=== PATIENT | female | born 1975 | race American Indian/Alaskan Native ===

== ENCOUNTER 2018-01-26 05:54 | Emergency (ER) | payer MEDICAID, OTHER ==
--- NOTE | 2018-01-26 06:02 | EDM.PDOC ---
<Kit Hooks - Last Filed: 01/26/18 09:31> ED HPI GENERAL MEDICAL PROBLEM - General Chief Complaint: Genitourinary Problem Stated Complaint: BLADDER INFECTION Time Seen by Provider: 01/26/18 06:02 Source of Information: Reports: Patient History Limitations: Reports: No Limitations - History of Present Illness INITIAL COMMENTS - FREE TEXT/NARRATIVE: This is Dr. Hooks taking over care of patient at [address] Horner. I have reviewed all history and lab results as well as physical exam patient. 42-year-old female presenting to emergency department with chief complaint of urinary urgency and right flank pain. Patient stated that she was here from [place] for a childbirth. States that she has been at the hospital since 10 PM last night when she began to have some urinary urgency "felt like I just had to pee", and when she did she felt some mild burning and noticed some red discoloration. Initially she thought that she had a urinary tract infection but since then has had some right sided flank pain. She denies any fever, chills, malaise, nausea, vomiting, diarrhea, or other symptoms of systemic infection. Patient does state that approximately 2 years ago she had a kidney stone which he passed on her own. No other episodes. 08 45- CT reveals a 4 mm stone in the right mid ureter without any hydronephrosis or hydroureter. There was also a 5 mm nonobstructing calculus lower pole calyx left kidney. No other significant findings on CT. Results discussed with patient. Pain currently controlled. Will consult urology but most likely able to discharge and passed on her own. 0915- talked with Dr. Walter, urology, he is aware patient. We will discharge her with tamsulosin 0.4 mg by mouth daily, [place] 5?3 25 mg by mouth every 6 hours #12, and Zofran 4 mg by mouth every 6 hours for any future nausea. Impression: Hematuria secondary to nephrolithiasis nonobstructing. As above gave pain medications, tamsulosin, and Zofran to patient. Instructed her to take medications as needed and to hydrate extensively. If she is continuing to have pain and does not pass the stone we did give her information on Dr. May to call for a clinic appointment for further evaluation. She should watch for any signs of infection including but not limited to fever, chills, malaise, increased pain, increased hematuria and follow-up immediately for possible infection. We also gave patient a toiletry hat and strainer to collect any stones that she passes. Patient was discharged in good condition with instruction to follow-up with her primary care physician and urology as needed. - Related Data Allergies Allergy/AdvReac Type Severity Reaction Status Date / Time Penicillins Allergy Cannot Verified 02/26/14 13:36 Remember Home Meds: Home Meds Cetirizine [ZyrTEC] 10 mg PO DAILY 02/26/14 [History] Fluticasone/Salmeterol [Advair 500-50] 2 puff INH BID 02/26/14 [History] Insulin Aspart [NovoLOG] 02/26/14 [History] Insulin Glarg,Human.Rec.Analog [LantUS] 5 unit SQ 02/26/14 [History] Ipratropium [Atrovent HFA Inh] 1 puff INH Q4HR PRN 02/26/14 [History] Ipratropium/Albuterol Sulfate [Duoneb 0.5 mg-3 mg/3 ml Soln] 3 ml INH PRN [History] Mometasone Furoate [Nasonex [place]] 1 spray FLORIDALMA BID 02/26/14 [History] Montelukast [Singulair] 10 mg PO DAILY 02/26/14 [History] metFORMIN [metFORMIN XR] 500 mg PO DAILY 02/26/14 [History] ED ROS GENERAL - Review of Systems Review Of Systems: See Below ED EXAM, GENERAL - Physical Exam Exam: See Below Course - Vital Signs Last Recorded V/S: Last Vital Signs Temp 96.8 F 01/26/18 10:05 Pulse 72 01/26/18 10:05 Resp 16 01/26/18 10:05 BP 104/71 01/26/18 10:05 Pulse Ox 96 01/26/18 10:05 - Orders/Labs/Meds Labs: Laboratory Tests 01/26/18 01/26/18 01/26/18 Range/Units 06:10 06:10 07:20 WBC 11.95 H (4.0-11.0) K/uL RBC 4.66 (4.30-5.90) M/uL Hgb 14.6 (12.0-16.0) g/dL Hct 41.2 (36.0-46.0) % MCV 88.4 (80.0-98.0) fL MCH 31.3 (27.0-32.0) pg MCHC 35.4 (31.0-37.0) g/dL RDW Std Deviation 41.1 (28.0-62.0) fl RDW Coeff of Corrina 13 (11.0-15.0) % Plt Count 293 (150-400) K/uL MPV 10.70 (7.40-12.00) fL Neut % (Auto) 58.7 (48.0-80.0) % Lymph % (Auto) 31.0 (16.0-40.0) % [place] % (Auto) 6.5 (0.0-15.0) % Eos % (Auto) 3.5 (0.0-7.0) % Baso % (Auto) 0.3 (0.0-1.5) % Neut # (Auto) 7.0 H (1.4-5.7) K/uL Lymph # (Auto) 3.7 H (0.6-2.4) K/uL [place] # (Auto) 0.8 (0.0-0.8) K/uL Eos # (Auto) 0.4 (0.0-0.7) K/uL Baso # (Auto) 0.0 (0.0-0.1) K/uL Nucleated RBC % 0.0 /100WBC Nucleated RBCs # 0 K/uL Sodium (136-145) mmol/L Potassium (3.5-5.1) mmol/L Chloride (98-107) mmol/L Carbon Dioxide (21.0-32.0) mmol/L BUN (7.0-18.0) mg/dL Creatinine (0.6-1.0) mg/dL Est Cr Clr Drug Dosing mL/min Estimated GFR (MDRD) ml/min Glucose (74-106) mg/dL Calcium (8.5-10.1) mg/dL Total Bilirubin (0.2-1.0) mg/dL AST (15-37) IU/L ALT (14-63) IU/L Alkaline Phosphatase (46-116) U/L Total Protein (6.4-8.2) g/dL Albumin (3.4-5.0) g/dL Globulin (2.0-3.5) g/dL Albumin/Globulin Ratio (1.3-2.8) Urine Color YELLOW Urine Appearance CLEAR Urine pH 6.0 (5.0-8.0) Ur Specific [place] >= 1.030 (1.001-1.035) Urine Protein 100 (NEGATIVE) mg/dL Urine Glucose (UA) >=1000 (NEGATIVE) mg/dL Urine Ketones NEGATIVE (NEGATIVE) mg/dL Urine Occult Blood LARGE H (NEGATIVE) Urine Nitrite NEGATIVE (NEGATIVE) Urine Bilirubin NEGATIVE (NEGATIVE) Urine Urobilinogen 0.2 (<2.0) EU/dL Ur Leukocyte Esterase NEGATIVE (NEGATIVE) Urine RBC 40-50 (0-2/HPF) Urine WBC 2-3 (0-5/HPF) Ur Epithelial Cells RARE (NONE-FEW) Urine Bacteria RARE (NEGATIVE) Urinalysis Comment Urine HCG, Qual NEGATIVE (NEGATIVE) 01/26/18 Range/Units 07:20 WBC (4.0-11.0) K/uL RBC (4.30-5.90) M/uL Hgb (12.0-16.0) g/dL Hct (36.0-46.0) % MCV (80.0-98.0) fL MCH (27.0-32.0) pg MCHC (31.0-37.0) g/dL RDW Std Deviation (28.0-62.0) fl RDW Coeff of Corrina (11.0-15.0) % Plt Count (150-400) K/uL MPV (7.40-12.00) fL Neut % (Auto) (48.0-80.0) % Lymph % (Auto) (16.0-40.0) % [place] % (Auto) (0.0-15.0) % Eos % (Auto) (0.0-7.0) % Baso % (Auto) (0.0-1.5) % Neut # (Auto) (1.4-5.7) K/uL Lymph # (Auto) (0.6-2.4) K/uL [place] # (Auto) (0.0-0.8) K/uL Eos # (Auto) (0.0-0.7) K/uL Baso # (Auto) (0.0-0.1) K/uL Nucleated RBC % /100WBC Nucleated RBCs # K/uL Sodium 138 (136-145) mmol/L Potassium 4.4 (3.5-5.1) mmol/L Chloride 103 (98-107) mmol/L Carbon Dioxide 25.5 (21.0-32.0) mmol/L BUN 16 (7.0-18.0) mg/dL Creatinine 1.1 H (0.6-1.0) mg/dL Est Cr Clr Drug Dosing 2.65 mL/min Estimated GFR (MDRD) 54.7 ml/min Glucose 330 H (74-106) mg/dL Calcium 9.5 (8.5-10.1) mg/dL Total Bilirubin 0.2 (0.2-1.0) mg/dL AST 31 (15-37) IU/L ALT 91 H (14-63) IU/L Alkaline Phosphatase 106 (46-116) U/L Total Protein 7.8 (6.4-8.2) g/dL Albumin 4.0 (3.4-5.0) g/dL Globulin 3.8 H (2.0-3.5) g/dL Albumin/Globulin Ratio 1.1 L (1.3-2.8) Urine Color Urine Appearance Urine pH (5.0-8.0) Ur Specific [place] (1.001-1.035) Urine Protein (NEGATIVE) mg/dL Urine Glucose (UA) (NEGATIVE) mg/dL Urine Ketones (NEGATIVE) mg/dL Urine Occult Blood (NEGATIVE) Urine Nitrite (NEGATIVE) Urine Bilirubin (NEGATIVE) Urine Urobilinogen (<2.0) EU/dL Ur Leukocyte Esterase (NEGATIVE) Urine RBC (0-2/HPF) Urine WBC (0-5/HPF) Ur Epithelial Cells (NONE-FEW) Urine Bacteria (NEGATIVE) Urinalysis Comment Urine HCG, Qual (NEGATIVE) Meds: Medications Discontinued Medications Generic Name Dose Route Start Last Admin Trade Name Freq PRN Reason Stop Dose Admin Sodium Chloride 1,000 mls @ 999 mls/hr 01/26/18 07:05 01/26/18 07:24 Normal Saline IV 01/26/18 08:05 999 mls/hr STAT ONE Administration Ketorolac Tromethamine 30 mg 01/26/18 07:05 01/26/18 07:28 Toradol IVPUSH 01/26/18 07:06 30 mg ONETIME ONE Administration Ketorolac Tromethamine 30 mg 01/26/18 09:30 01/26/18 09:32 Toradol IVPUSH 01/26/18 09:31 30 mg ONETIME ONE Administration Ondansetron HCl 8 mg 01/26/18 07:05 01/26/18 07:26 Zofran IVPUSH 01/26/18 07:06 8 mg ONETIME ONE Administration Departure - Departure Time of Disposition: 09:35 Disposition: Home, Self-Care 01 Condition: Good Clinical Impression: Nephrolithiasis - Discharge Information Instructions: Kidney Stones, [id number] Referrals: PCP,None [Primary Care Provider] - James May MD [Physician] - Forms: ED Department Discharge Additional Instructions: My general discharge The following information is given to patients seen in the emergency department who are being discharged to home. This information is to outline your options for follow-up care. We provide all patients seen in our emergency department with a follow-up referral. The need for follow-up, as well as the timing and circumstances, are variable depending upon the specifics of your emergency department visit. If you don't have a primary care physician on staff, we will provide you with a referral. We always advise you to contact your personal physician following an emergency department visit to inform them of the circumstance of the visit and for follow-up with them and/or the need for any referrals to a consulting specialist. The emergency department will also refer you to a specialist when appropriate. This referral assures that you have the opportunity for follow-up care with a specialist. All of these measure are taken in an effort to provide you with optimal care, which includes your follow-up. Under all circumstances we always encourage you to contact your private physician who remains a resource for coordinating your care. When calling for follow-up care, please make the office aware that this follow-up is from your recent emergency room visit. If for any reason you are refused follow-up, please contact the [facility] at and asked to speak to the emergency department charge nurse. [facility] [address] [place] [id number] [facility] - Urology [address] [place] [address] <Benedict Simon - Last Filed: 01/29/18 10:42> ED HPI GENERAL MEDICAL PROBLEM - General Source of Information: Reports: Patient - History of Present Illness INITIAL COMMENTS - FREE TEXT/NARRATIVE: Addendum 01/29/[address] Walter and as well as Althea at 1040 this morning as her urine culture came back positive for Escherichia coli greater than 100, 000 colony-forming units Dr. Luz advised that she come in to his office like will likely will be admitting and removing her stone in the morning as she is still having symptoms of the stone has not passed this is agreed to come in from [place] and should be in his office by 1 PM HISTORY AND PHYSICAL: History of present illness: [Patient with frequency and dysuria for 1 days increasing in severity no fever nausea vomiting chills sweats] she has groin pain radiating to the right flank she rates 6 out of 10 Review of systems: As per history of present illness and below otherwise all systems reviewed and negative. Past medical history: As per history of present illness and as reviewed below otherwise noncontributory. Surgical history: As per history of present illness and as reviewed below otherwise noncontributory. Social history: No reported history of drug or alcohol abuse. Family history: As per history of present illness and as reviewed below otherwise noncontributory. Physical exam: HEENT: Atraumatic, normocephalic, pupils reactive, negative for conjunctival pallor or scleral icterus, mucous membranes moist, throat clear, neck supple, nontender, trachea midline. Lungs: Clear to auscultation, breath sounds equal bilaterally, chest nontender. Heart: S1S2, regular, negative for clicks, rubs, or JVD. Abdomen: Soft, nondistended, nontender. Negative for masses or hepatosplenomegaly. Negative for costovertebral tenderness. Pelvis: Stable nontender. Genitourinary: Deferred. Rectal: Deferred. Extremities: Atraumatic, negative for cords or calf pain. Neurovascular unremarkable. Neuro: Awake, alert, oriented. Cranial nerves II through XII unremarkable. Cerebellum unremarkable. Motor and sensory unremarkable throughout. Exam nonfocal. Diagnostics: [UA hCG urine culture] Therapeutics: [1 L normal saline bolus Zofran 8 mg IV ] Toradol 30 mg IV Impression: hematuria Patient signed out at shift change to Dr. Hooks to follow lab and redirect imaging was just ordered and pending Definitive disposition and diagnosis as appropriate pending reevaluation and review of above. bladder/urinary Pain Score (Numeric/FACES): 8 Social & Family History - Living Situation & Occupation Living situation: Reports: Single Occupation: Employed ED ROS GENERAL - Review of Systems Review Of Systems: ROS reveals no pertinent complaints other than HPI. ED EXAM, GENERAL - Physical Exam Exam: See Below Course - Vital Signs Last Recorded V/S: Last Vital Signs Temp 96.8 F 01/26/18 10:05 Pulse 72 01/26/18 10:05 Resp 16 01/26/18 10:05 BP 104/71 01/26/18 10:05 Pulse Ox 96 01/26/18 10:05 - Orders/Labs/Meds Labs: Laboratory Tests 01/26/18 01/26/18 01/26/18 Range/Units 06:10 06:10 07:20 WBC 11.95 H (4.0-11.0) K/uL RBC 4.66 (4.30-5.90) M/uL Hgb 14.6 (12.0-16.0) g/dL Hct 41.2 (36.0-46.0) % MCV 88.4 (80.0-98.0) fL MCH 31.3 (27.0-32.0) pg MCHC 35.4 (31.0-37.0) g/dL RDW Std Deviation 41.1 (28.0-62.0) fl RDW Coeff of Corrina 13 (11.0-15.0) % Plt Count 293 (150-400) K/uL MPV 10.70 (7.40-12.00) fL Neut % (Auto) 58.7 (48.0-80.0) % Lymph % (Auto) 31.0 (16.0-40.0) % [place] % (Auto) 6.5 (0.0-15.0) % Eos % (Auto) 3.5 (0.0-7.0) % Baso % (Auto) 0.3 (0.0-1.5) % Neut # (Auto) 7.0 H (1.4-5.7) K/uL Lymph # (Auto) 3.7 H (0.6-2.4) K/uL [place] # (Auto) 0.8 (0.0-0.8) K/uL Eos # (Auto) 0.4 (0.0-0.7) K/uL Baso # (Auto) 0.0 (0.0-0.1) K/uL Nucleated RBC % 0.0 /100WBC Nucleated RBCs # 0 K/uL Sodium (136-145) mmol/L Potassium (3.5-5.1) mmol/L Chloride (98-107) mmol/L Carbon Dioxide (21.0-32.0) mmol/L BUN (7.0-18.0) mg/dL Creatinine (0.6-1.0) mg/dL Est Cr Clr Drug Dosing mL/min Estimated GFR (MDRD) ml/min Glucose (74-106) mg/dL Calcium (8.5-10.1) mg/dL Total Bilirubin (0.2-1.0) mg/dL AST (15-37) IU/L ALT (14-63) IU/L Alkaline Phosphatase (46-116) U/L Total Protein (6.4-8.2) g/dL Albumin (3.4-5.0) g/dL Globulin (2.0-3.5) g/dL Albumin/Globulin Ratio (1.3-2.8) Urine Color YELLOW Urine Appearance CLEAR Urine pH 6.0 (5.0-8.0) Ur Specific [place] >= 1.030 (1.001-1.035) Urine Protein 100 (NEGATIVE) mg/dL Urine Glucose (UA) >=1000 (NEGATIVE) mg/dL Urine Ketones NEGATIVE (NEGATIVE) mg/dL Urine Occult Blood LARGE H (NEGATIVE) Urine Nitrite NEGATIVE (NEGATIVE) Urine Bilirubin NEGATIVE (NEGATIVE) Urine Urobilinogen 0.2 (<2.0) EU/dL Ur Leukocyte Esterase NEGATIVE (NEGATIVE) Urine RBC 40-50 (0-2/HPF) Urine WBC 2-3 (0-5/HPF) Ur Epithelial Cells RARE (NONE-FEW) Urine Bacteria RARE (NEGATIVE) Urinalysis Comment Urine HCG, Qual NEGATIVE (NEGATIVE) 01/26/18 Range/Units 07:20 WBC (4.0-11.0) K/uL RBC (4.30-5.90) M/uL Hgb (12.0-16.0) g/dL Hct (36.0-46.0) % MCV (80.0-98.0) fL MCH (27.0-32.0) pg MCHC (31.0-37.0) g/dL RDW Std Deviation (28.0-62.0) fl RDW Coeff of [place]rina (11.0-15.0) % Plt Count (150-400) K/uL MPV (7.40-12.00) fL Neut % (Auto) (48.0-80.0) % Lymph % (Auto) (16.0-40.0) % [place] % (Auto) (0.0-15.0) % Eos % (Auto) (0.0-7.0) % Baso % (Auto) (0.0-1.5) % Neut # (Auto) (1.4-5.7) K/uL Lymph # (Auto) (0.6-2.4) K/uL [place] # (Auto) (0.0-0.8) K/uL Eos # (Auto) (0.0-0.7) K/uL Baso # (Auto) (0.0-0.1) K/uL Nucleated RBC % /100WBC Nucleated RBCs # K/uL Sodium 138 (136-145) mmol/L Potassium 4.4 (3.5-5.1) mmol/L Chloride 103 (98-107) mmol/L Carbon Dioxide 25.5 (21.0-32.0) mmol/L BUN 16 (7.0-18.0) mg/dL Creatinine 1.1 H (0.6-1.0) mg/dL Est Cr Clr Drug Dosing 2.65 mL/min Estimated GFR (MDRD) 54.7 ml/min Glucose 330 H (74-106) mg/dL Calcium 9.5 (8.5-10.1) mg/dL Total Bilirubin 0.2 (0.2-1.0) mg/dL AST 31 (15-37) IU/L ALT 91 H (14-63) IU/L Alkaline Phosphatase 106 (46-116) U/L Total Protein 7.8 (6.4-8.2) g/dL Albumin 4.0 (3.4-5.0) g/dL Globulin 3.8 H (2.0-3.5) g/dL Albumin/Globulin Ratio 1.1 L (1.3-2.8) Urine Color Urine Appearance Urine pH (5.0-8.0) Ur Specific [place] (1.001-1.035) Urine Protein (NEGATIVE) mg/dL Urine Glucose (UA) (NEGATIVE) mg/dL Urine Ketones (NEGATIVE) mg/dL Urine Occult Blood (NEGATIVE) Urine Nitrite (NEGATIVE) Urine Bilirubin (NEGATIVE) Urine Urobilinogen (<2.0) EU/dL Ur Leukocyte Esterase (NEGATIVE) Urine RBC (0-2/HPF) Urine WBC (0-5/HPF) Ur Epithelial Cells (NONE-FEW) Urine Bacteria (NEGATIVE) Urinalysis Comment Urine HCG, Qual (NEGATIVE) Meds: Medications Discontinued Medications Generic Name Dose Route Start Last Admin Trade Name Freq PRN Reason Stop Dose Admin Sodium Chloride 1,000 mls @ 999 mls/hr 01/26/18 07:05 01/26/18 07:24 Normal Saline IV 01/26/18 08:05 999 mls/hr STAT ONE Administration Ketorolac Tromethamine 30 mg 01/26/18 07:05 01/26/18 07:28 Toradol IVPUSH 01/26/18 07:06 30 mg ONETIME ONE Administration Ketorolac Tromethamine 30 mg 01/26/18 09:30 01/26/18 09:32 Toradol IVPUSH 01/26/18 09:31 30 mg ONETIME ONE Administration Ondansetron HCl 8 mg 01/26/18 07:05 01/26/18 07:26 Zofran IVPUSH 01/26/18 07:06 8 mg ONETIME ONE Administration
[2018-01-26] MEDS ORDERED: Ondansetron 4 MG/2 ML SDV IVPUSH ONE (07:05)
[2018-01-26] MEDS ORDERED: Ketorolac 30 MG/ML SDV IVPUSH ONE ×2 (07:05→09:30)
[2018-01-26] MEDS ORDERED: Sodium Chloride 0.9% 1,000 ML IV ONE (07:05)
--- NOTE | 2018-01-26 13:28 | CT ---
EXAM DATE: 01/26/18 PATIENT'S AGE: 42 Patient: CELIA ROLON Facility: [place], [place] Site . Site : [id number] Study: CT Abdomen/Pelvis WO CONT [id number]/18/2018 8:01:44 AM Ordering Physician: Evens Mcmullen Final Report: INDICATION: Right-sided back pain; hematuria; frequent urination. COMPARISON: None. TECHNIQUE: CT abdomen and pelvis without intravenous or oral contrast; coronal and sagittal reformats. FINDINGS: 4 mm calcification identified in the course of the right mid ureter as noted on slice 85 of series 201 without any hydronephrosis or hydroureter. 5 mm stone identified in the lower pole cortex left kidney as noted on slice 63 of series 201 without any hydronephrosis or hydroureter. No abnormal intra pulmonary nodular densities through the lung bases. No evidence of pleural effusion. Normal size cardiac silhouette without any evidence of pericardial effusion. Diffuse fatty liver. No focal hepatic or splenic pathology. No pancreatic pathology. Status post cholecystectomy. No adrenal pathology. No retroperitoneal lymphadenopathy. No evidence of abdominal or pelvic ascites. Normal appendix. CT study of the pelvis is unremarkable. IMPRESSION: 1. 4 mm stone in the right mid ureter without any hydronephrosis or hydroureter. 2. 5 mm nonobstructing calculus lower pole calyx left kidney. 3. Normal appendix. 4. Negative unenhanced CT abdomen and pelvis otherwise. Please note that all CT scans at this facility use dose modulation, iterative reconstruction, and/or weight-based dosing when appropriate to reduce radiation dose to as low as reasonably achievable. Dictated by Lukas Sanchez MD @ Jan 26 2018 8:04AM (Electronic Signature) Report Signed by Proxy. RENZO
== END 2018-01-26 10:03 | disposition home or self-care (01) ==
LOC: MW.ED 05:54
DX: N20.2 Calculus of kidney with calculus of ureter (principal); Z88.0 Allergy status to penicillin; Z79.899 Other long term (current) drug therapy; Z79.4 Long term (current) use of insulin
CPT/HCPCS: 36415; 74176; 80053; 81001; 81025; 85025; 87086; 87088; 87186; 96361; 96374; 96375; 96376; 99284; J1885; J2405; J7040

== ENCOUNTER 2018-01-29 17:55 | Observation (INO) | payer MEDICAID, OTHER ==
[2018-01-29] MEDS ORDERED: Sodium Chloride 0.9% 2.5 ML Syringe FLUSH PRN (17:58)
[2018-01-29] MEDS ORDERED: Sodium Chloride 0.9% 10 ML Syringe FLUSH PRN (17:58)
[2018-01-29] MEDS ORDERED: Tamsulosin 0.4 MG Cap.ER PO ONE ×2 (18:12→23:30)
[2018-01-29] MEDS ORDERED: Acetaminophen/oxyCODONE 325-10 MG Tab PO PRN (18:13)
[2018-01-29] MEDS ORDERED: Ondansetron 4 MG/2 ML SDV IVPUSH PRN (18:15)
[2018-01-29] MEDS: Lactated Ringers 1,000 ML IV SCH (21:33)
[2018-01-29] MEDS: Ciprofloxacin in D5W 400 MG in Premix Bag 1 BAG IV SCH ×2 (21:39)
[2018-01-30] MEDS: Ciprofloxacin in D5W 400 MG in Premix Bag 1 BAG IV SCH ×4 (05:00→18:06)
[2018-01-30] MEDS: Lactated Ringers 1,000 ML IV SCH ×2 (06:23→13:52)
[2018-01-30] MEDS ORDERED: Iopamidol 408 MG/ML 50 ML SDV ONE (07:17)
--- NOTE | 2018-01-30 07:40 | PCM.CONS ---
H&P History of Present Illness - General Date of Service: 01/30/18 Admit Problem/Dx: Admission Diagnosis/Problem Admission Diagnosis/Problem Calculus of distal right ureter Source of Information: Patient, Old Records History Limitations: Reports: No Limitations - History of Present Illness Initial Comments - Free Text/Narative: This 42 year old female with pmh of mild intermittent asthma, obesity and Type [address] May's clinic yesterday with concerns of R flank pain. She was noted to have 4 mm ureteral stone on 01/26 when she first was seen in the ED for R flank pain. Dr May admitted patient last evening for stone removal. UC obtained in ED on 01/26 grew out rios sensitive E coli. She is currently being treated with Ciprofloxacin and Tobramycin. Hospitalist service consulted for diabetic management. Jamilah is feeling ok this morning, having some R flank pain. She denies fevers, chills, chest pain or SOB. Continues to have some urinary frequency, urgency, and dysuria, but these are improving since antibiotics were started,per her report. She reports she was recently started on a new DM medication, a once weekly subcutaneous injection, she forgot the name. Otherwise she is taking Lantus 10 units in the morning and 20-30 units Novolog with each meal and Metformin. Her last A1c was 10%. She also has known mild intermittent asthma, which she takes Dulera and has a rescue inhaler along with nebulizer PRN. She reports she has not need rescue inhaler or nebulizers recently and asthma is fairly well controlled. Right Flank Pain Score (Numeric/FACES): 0 - Related Data Allergies/Adverse Reactions: Allergies Allergy/AdvReac Type Severity Reaction Status Date / Time Penicillins Allergy Cannot Verified 02/26/14 13:36 Remember Home Medications: Home Meds Cetirizine [ZyrTEC] 10 mg PO DAILY 02/26/14 [History] Insulin Aspart [NovoLOG] 1 units SQ 02/26/14 [History] Insulin Glarg,Human.Rec.Analog [LantUS] 10 unit SQ DAILY 02/26/14 [History] Ipratropium [Atrovent HFA Inh] 1 puff INH Q4HR PRN 02/26/14 [History] Ipratropium/Albuterol Sulfate [Duoneb 0.5 mg-3 mg/3 ml Soln] 3 ml INH Q4H PRN [History] Montelukast [Singulair] 10 mg PO DAILY 02/26/14 [History] metFORMIN [metFORMIN XR] 500 mg PO DAILY 02/26/14 [History] Past Medical History HEENT History: Reports: None Cardiovascular History: Reports: None. Denies: Afib, Blood Clots/VTE/DVT, CAD, High Cholesterol, Hypertension, [place] Respiratory History: Reports: Asthma Gastrointestinal History: Reports: None. Denies: GERD, GI Bleed Genitourinary History: Reports: None. Denies: Chronic Renal Insuffiency Musculoskeletal History: Reports: None Neurological History: Reports: None. Denies: CVA, Migraines, TIA Endocrine/Metabolic History: Reports: Diabetes, Type II, Obesity/BMI 30+ Hematologic History: Reports: None Dermatologic History: Reports: None - Infectious Disease History Infectious Disease History: Reports: Chicken Pox - Past Surgical History HEENT Surgical History: Reports: None GI Surgical History: Reports: Cholecystectomy Female Surgical History: Reports: Tubal Ligation Social & Family History - Family History Family Medical History: Noncontributory - Tobacco Use Smoking Status *Q: Current Some Day Smoker Years of Tobacco use: 20 Packs/Tins Daily: 0.2 Used Tobacco, but Quit: No Tobacco Use Comment: States she is trying to quit. Second Hand Smoke Exposure: No - Caffeine Use Caffeine Use: Reports: Soda, Tea - Alcohol Use Alcohol Use History: No - Recreational Drug Use Recreational Drug Use: No - Living Situation & Occupation Living situation: Reports: Single Occupation: Employed H&P Review of Systems - Review of Systems: Review Of Systems: See Below General: Reports: No Symptoms. Denies: Fever, Chills, Malaise, Weakness HEENT: Reports: No Symptoms. Denies: Sinus Congestion, Sore Throat, Vertigo Pulmonary: Reports: No Symptoms. Denies: Shortness of Breath, Cough, Sputum Cardiovascular: Reports: No Symptoms. Denies: Chest Pain, Palpitations, Edema Gastrointestinal: Reports: Abdominal Pain (R flank pain). Denies: Black Stool, Bloody Stool, Decreased Appetite, Nausea, Vomiting Genitourinary: Reports: Dysuria, Frequency, Pain, Urgency, Flank Pain (R flank) Musculoskeletal: Reports: No Symptoms. Denies: Neck Pain Skin: Reports: No Symptoms Psychiatric: Reports: No Symptoms Neurological: Reports: No Symptoms Hematologic/Lymphatic: Reports: No Symptoms Immunologic: Reports: No Symptoms Exam - Exam Exam: See Below - Vital Signs Vital Signs: Last Vital Signs Temp 97.3 F 01/30/18 04:00 Pulse 82 01/30/18 04:00 Resp 18 01/30/18 04:00 BP 131/73 01/30/18 04:00 Pulse Ox 95 01/30/18 04:00 Weight: 133.5 kg - Exam General: Alert, Oriented, Cooperative HEENT: Conjunctiva Clear, Mucosa Moist & [place], Posterior Pharynx Clear Neck: Supple Lungs: Clear to Auscultation, Normal Respiratory Effort Cardiovascular: Regular Rate, Regular Rhythm GI/Abdominal Exam: Normal Bowel Sounds, Soft, No Organomegaly, No Distention, No Abnormal Bruit, No Mass, Pelvis Stable, Tender Back Exam: CVA Tenderness (R) (R abdomen and R flank) Extremities: Normal Inspection, Normal Range of Motion, Non-Tender, No Pedal Edema, Normal Capillary Refill Neuro Extensive - Mental Status: Alert, Oriented x3, Normal Mood/Affect, Normal Cognition Neuro Extensive - Motor, Sensory, Reflexes: CN II-XII Intact Psychiatric: Alert, Normal Affect, Normal Mood - Patient Data Lab Results Last 24 hrs: Laboratory Results - last 24 hr 01/29/18 01/30/18 Range/Units 21:52 06:32 POC Glucose 297 H 257 H (60-110) mg/dL Result Diagrams: 01/30/18 07:43 01/30/18 07:43 Consult PN Assessment/Plan Procedures: Procedures AIRWAY INHALATION TREATMENT (02/26/14) CHEST X-RAY 2VW FRONTAL&LATL (02/26/14) COMPLETE CBC W/AUTO DIFF WBC (01/26/18) COMPREHEN METABOLIC PANEL (01/26/18) CT ABD & PELVIS W/O CONTRAST (01/26/18) EMERGENCY DEPT VISIT (01/26/18) EMERGENCY DEPT VISIT (02/26/14) HYDRATE IV INFUSION ADD-ON (01/26/18) MICROBE SUSCEPTIBLE [place] (01/26/18) ROUTINE VENIPUNCTURE (01/26/18) THER/PROPH/DIAG INJ IV PUSH (01/26/18) THER/PROPH/DIAG INJ SC/IM (02/26/14) TX/PRO/DX INJ NEW DRUG ADDON (01/26/18) TX/PRO/DX INJ SAME DRUG BUYING AGENT (01/26/18) URINALYSIS AUTO W/SCOPE (01/26/18) URINE BACTERIA CULTURE (01/26/18) URINE CULTURE/COLONY COUNT (01/26/18) URINE TEST (01/26/18) (1) Nephrolithiasis SNOMED Code(s): 09207891 Code(s): N20.0 - CALCULUS OF KIDNEY Current Visit: No (2) UTI (urinary tract infection) SNOMED Code(s): 83103543 Code(s): N39.0 - URINARY TRACT INFECTION, SITE NOT SPECIFIED Current Visit : Yes Qualifiers: Indwelling urinary catheter type: unspecified Encounter type: subsequent encounter (3) DM type 2 (diabetes mellitus, type 2) SNOMED Code(s): 43215815 Code(s): E11.9 - TYPE 2 DIABETES MELLITUS WITHOUT COMPLICATIONS Current Visit: Yes Qualifiers: Diabetes mellitus correction insulin use: with correction use Diabetes mellitus complication status: without complication Qualified Code(s): E11.9 - Type 2 diabetes mellitus without complications; Z79.4 - bed bug exterminator (current) use of insulin (4) Obesity SNOMED Code(s): 583456585, 834458967 Code(s): E66.9 - OBESITY, UNSPECIFIED Current Visit: Yes Qualifiers: Obesity classification: adult class 3 (BMI >= 40) Body mass index: BMI 40.0 -44.9 (5) Asthma SNOMED Code(s): 574315224 Code(s): J45.909 - UNSPECIFIED ASTHMA, UNCOMPLICATED Current Visit: No Problem List Initiated/Reviewed/Updated: Yes My Orders Last 24 Hours: My Active Orders 01/30/18 07:35 BMP [BASIC METABOLIC PANEL,BMP] [CHEM] Routine CBC WITH AUTO DIFF [HEME] Routine 01/30/18 07:45 Insulin Aspart [NovoLOG] See Protocol SUBCUT Q6H Plan: This 42 year old female admitted with UTI and ureteral stone with planned removal today. Hospitalist service consulted for diabetic management. 1. UTI and ureteral stone: management per Dr May. 2. DM Type 2: uncontrolled. BS this morning fasting 257. While NPO, will place on Novolog low SSI and monitor BS Q6hr. Once eating, restart Lantus 10 units and TIDAC monitoring of BS with Novolog coverage. Hold Metformin for now. Able to restart upon discharge. 3. Asthma: Stable. Continue Dulera and albuterol inhaler. Was able to take PO, restart Singulair and Zyrtec as well. VTE prophylaxis: SCDs
[2018-01-30 08:07] LABS: CHLORIDE,CL 103 mmol/L (98-107); SODIUM,NA 135 mmol/L (136-145)
[2018-01-30] MEDS: Insulin Aspart 100 Units/ML 3 ML Pen SUBCUT SCH ×2 (08:20→13:49)
[2018-01-30] MEDS ORDERED: Morphine 4 MG/ML Syringe IVPUSH PRN (08:24)
[2018-01-30] MEDS ORDERED: Lidocaine 2% 5 ML SDV ONE (14:22)
[2018-01-30] MEDS ORDERED: Propofol 200 MG/20 ML SDV ONE (14:23)
[2018-01-30] MEDS ORDERED: fentaNYL 250 MCG/5 ML SDV ONE (14:23)
[2018-01-30] MEDS ORDERED: Midazolam 1 MG/ML 2 ML SDV ONE (14:23)
[2018-01-30] MEDS ORDERED: Neostigmine Methylsulfate 1 MG/ML 5 ML Syringe ONE (14:28)
[2018-01-30] MEDS ORDERED: Rocuronium 10 MG/ML 10 ML Syringe ONE (14:28)
[2018-01-30] MEDS ORDERED: Glycopyrrolate 0.2 MG/ML SDV ONE (14:28)
--- NOTE | 2018-01-30 14:37 | PCM.PREANE ---
Preanesthetic Assessment - Anesthesia/Transfusion/Family Hx Anesthesia History: Prior Anesthesia Without Reaction Family History of Anesthesia Reaction: No Transfusion History: No Prior Transfusion(s) Intubation History: Unknown - Review of Systems General: No Symptoms Pulmonary: No Symptoms Cardiovascular: No Symptoms Gastrointestinal: No Symptoms Neurological: No Symptoms Other: Reports: None - Physical Assessment O2 Sat by Pulse Oximetry: 95 Respiratory Rate: 18 Vital Signs: Last Vital Signs Temp 36.1 C 01/30/18 11:40 Pulse 74 01/30/18 11:40 Resp 18 01/30/18 11:40 BP 151/73 H 01/30/18 11:40 Pulse Ox 95 01/30/18 11:40 Height: 1.74 m Weight: 133.5 kg ASA Class: 2 Mental Status: Alert & Oriented x3 Airway Class: Mallampati = 2 Dentition: Reports: Normal Dentition Thyro-Mental Finger Breadths: 3 Mouth Opening Finger Breadths: 3 ROM/Head Extension: Full Lungs: Clear to Auscultation, Normal Respiratory Effort Cardiovascular: Regular Rate, Regular Rhythm - Lab Values: Laboratory Last Values WBC 8.27 K/uL (4.0-11.0) 01/30/18 07:43 RBC 4.12 M/uL (4.30-5.90) L 01/30/18 07:43 Hgb 12.7 g/dL (12.0-16.0) 01/30/18 07:43 Hct 36.5 % (36.0-46.0) 01/30/18 07:43 MCV 88.6 fL (80.0-98.0) 01/30/18 07:43 MCH 30.8 pg (27.0-32.0) 01/30/18 07:43 MCHC 34.8 g/dL (31.0-37.0) 01/30/18 07:43 RDW Std Deviation 41.2 fl (28.0-62.0) 01/30/18 07:43 RDW Coeff of Corrina 13 % (11.0-15.0) 01/30/18 07:43 Plt Count 235 K/uL (150-400) 01/30/18 07:43 MPV 10.00 fL (7.40-12.00) 01/30/18 07:43 Neut % (Auto) 44.7 % (48.0-80.0) L 01/30/18 07:43 Lymph % (Auto) 41.4 % (16.0-40.0) H 01/30/18 07:43 Barren % (Auto) 9.9 % (0.0-15.0) 01/30/18 07:43 Eos % (Auto) 3.6 % (0.0-7.0) 01/30/18 07:43 Baso % (Auto) 0.4 % (0.0-1.5) 01/30/18 07:43 Neut # (Auto) 3.7 K/uL (1.4-5.7) 01/30/18 07:43 Lymph # (Auto) 3.4 K/uL (0.6-2.4) H 01/30/18 07:43 Barren # (Auto) 0.8 K/uL (0.0-0.8) 01/30/18 07:43 Eos # (Auto) 0.3 K/uL (0.0-0.7) 01/30/18 07:43 Baso # (Auto) 0.0 K/uL (0.0-0.1) 01/30/18 07:43 Nucleated RBC % 0.0 /100WBC 01/30/18 07:43 Nucleated RBCs # 0 K/uL 01/30/18 07:43 Sodium 135 mmol/L (136-145) L 01/30/18 07:43 Potassium 4.1 mmol/L (3.5-5.1) 01/30/18 07:43 Chloride 103 mmol/L (98-107) 01/30/18 07:43 Carbon Dioxide 26.4 mmol/L (21.0-32.0) 01/30/18 07:43 BUN 12 mg/dL (7.0-18.0) 01/30/18 07:43 Creatinine 0.9 mg/dL (0.6-1.0) 01/30/18 07:43 Est Cr Clr Drug Dosing 84.47 mL/min 01/30/18 07:43 Estimated GFR (MDRD) > 60.0 ml/min 01/30/18 07:43 Glucose 266 mg/dL (74-106) H 01/30/18 07:43 POC Glucose 193 mg/dL (60-110) H 01/30/18 13:47 Calcium 8.6 mg/dL (8.5-10.1) 01/30/18 07:43 - Allergies Allergies/Adverse Reactions: Allergies Allergy/AdvReac Type Severity Reaction Status Date / Time Penicillins Allergy Cannot Verified 02/26/14 13:36 Remember - Blood Blood Available: No - Anesthesia Plan Pre-Op Medication Ordered: None - Acknowledgements Anesthesia Type Planned: General Anesthesia Pt an Appropriate Candidate for the Planned Anesthesia: Yes Alternatives and Risks of Anesthesia Discussed w Pt/Guardian: Yes Pt/Guardian Understands and Agrees with Anesthesia Plan: Yes PreAnesthesia Questionnaire HEENT History: Reports: None Cardiovascular History: Reports: None. Denies: Afib, Blood Clots/VTE/DVT, CAD, High Cholesterol, Hypertension, [place] Respiratory History: Reports: Asthma Gastrointestinal History: Reports: GERD Genitourinary History: Reports: Renal Calculus Musculoskeletal History: Reports: None Neurological History: Reports: None Psychiatric History: Reports: Anxiety, Depression, Panic Attack, Suicide Attempt Endocrine/Metabolic History: Reports: Diabetes, Type II, Obesity/BMI 30+ ( morbid obesity BMI 44.1) Hematologic History: Reports: None Dermatologic History: Reports: None - Infectious Disease History Infectious Disease History: Reports: Chicken Pox - Past Surgical History HEENT Surgical History: Reports: None GI Surgical History: Reports: Cholecystectomy Female Surgical History: Reports: Tubal Ligation - SUBSTANCE USE Smoking Status *Q: Current Some Day Smoker Tobacco Use Within Last Twelve Months: Cigarettes Second Hand Smoke Exposure: No Recreational Drug Use History: No - HOME MEDS Home Medications: Home Meds Cetirizine [ZyrTEC] 10 mg PO DAILY 02/26/14 [History] Insulin Aspart [NovoLOG] 1 units SQ 02/26/14 [History] Insulin Glarg,Human.Rec.Analog [LantUS] 10 unit SQ DAILY 02/26/14 [History] Ipratropium [Atrovent HFA Inh] 1 puff INH Q4HR PRN 02/26/14 [History] Ipratropium/Albuterol Sulfate [Duoneb 0.5 mg-3 mg/3 ml Soln] 3 ml INH Q4H PRN [History] Montelukast [Singulair] 10 mg PO DAILY 02/26/14 [History] metFORMIN [metFORMIN XR] 500 mg PO DAILY 02/26/14 [History] - CURRENT (IN HOUSE) MEDS Current Meds: Current Medications Ciprofloxacin/Dextrose 400 mg/ (Premix) 200 mls @ 200 mls/hr IV Q12H [facility] Last Admin: 01/30/18 05:00 Dose: 200 mls/hr Lactated Ringer's (Ringers, Lactated) 1,000 mls @ 150 mls/hr IV ASDIRECTED [facility] Last Admin: 01/30/18 13:52 Dose: 150 mls/hr Tobramycin 120 mg/ Sodium (Chloride) 103 mls @ 103 mls/hr IV Q12H [facility] Last Admin: 01/30/18 09:36 Dose: 103 mls/hr Insulin Aspart (Novolog) 0 unit SUBCUT Q6H [facility]; Protocol Last Admin: 01/30/18 13:49 Dose: 1 units Morphine Sulfate (Morphine) 2 mg IVPUSH Q2H PRN PRN Reason: Pain Ondansetron HCl (Zofran) 4 mg IVPUSH Q4H PRN PRN Reason: Nausea Oxycodone/Acetaminophen (Percocet 325-10 Mg) 1 tab PO Q4H PRN PRN Reason: Abdominal Pain Sodium Chloride (Saline Flush) 10 ml FLUSH ASDIRECTED PRN PRN Reason: Keep Vein Open Sodium Chloride (Saline Flush) 2.5 ml FLUSH ASDIRECTED PRN PRN Reason: Keep Vein Open Discontinued Medications Fentanyl (Sublimaze) Confirm Administered Dose 250 mcg .ROUTE .STK-MED ONE Stop: 01/30/18 14:24 Glycopyrrolate (Robinul) Confirm Administered Dose 0.6 mg .ROUTE .STK-MED ONE Stop: 01/30/18 14:29 Tobramycin 120 mg/ Sodium (Chloride) 103 mls @ 103 mls/hr IV Q12H [facility] Iopamidol (Isovue-200 (41%)) Confirm Administered Dose 50 ml .ROUTE .STK-MED ONE Stop: 01/30/18 07:18 Lidocaine (Xylocaine-Mpf 2%) Confirm Administered Dose 10 ml .ROUTE .STK-MED ONE Stop: 01/30/18 14:23 Midazolam HCl (Versed 1 Mg/Ml) Confirm Administered Dose 2 mg .ROUTE .STK-MED ONE Stop: 01/30/18 14:24 Neostigmine Methylsulfate (Neostigmine) Confirm Administered Dose 5 mg .ROUTE .STK-MED ONE Stop: 01/30/18 14:29 Propofol (Diprivan 20 Ml) Confirm Administered Dose 400 mg .ROUTE .STK-MED ONE Stop: 01/30/18 14:24 Rocuronium [place] (Zemuron) Confirm Administered Dose 100 mg .ROUTE .STK-MED ONE Stop: 01/30/18 14:29 Tamsulosin HCl (Flomax) 0.4 mg PO ONETIME ONE Stop: 01/29/18 18:13 Last Admin: 01/29/18 23:40 Dose: 0.4 mg Tamsulosin HCl (Flomax) 0.4 mg PO ONETIME ONE Stop: 01/29/18 23:31 Last Admin: 01/29/18 23:43 Dose: Not Given Tobramycin (Nebcin) 120 mg IV Q12HR [facility]
[2018-01-30] MEDS ORDERED: Sugammadex Sodium 200 MG/2 ML VIAL ONE (15:47)
[2018-01-30] MEDS ORDERED: Albuterol/Ipratropium 3.0-0.5 MG/3 ML Neb Soln NEB ONE (16:04)
[2018-01-30] MEDS ORDERED: fentaNYL 100 MCG/2 ML SDV IVPUSH PRN (16:05)
--- NOTE | 2018-01-30 16:29 | OR ---
SURGEON: James May M.D. DATE OF PROCEDURE: 01/30/2018 PREOPERATIVE DIAGNOSIS: Right ureteral stone. POSTOPERATIVE DIAGNOSIS: Right ureteral stone: No stones identified. OPERATION: Ureteroscopy and renoscopy. DESCRIPTION OF THE PROCEDURE: Patient was given general anesthesia, placed in dorsal lithotomy position, prepped and draped in sterile drapes. Cystourethroscopy was done, that was normal. The right ureteral tunnel was dilated using the UroMax II balloon dilator to approximately 15-[place]izen [place]. A Glidewire was advanced alongside the guidewire. The flexible ureteroscope was advanced over the guidewire all the way up into the renal pelvis. The inside of the renal pelvis was inspected looking into every single calyx and could not find the stone. To be on the safe side, I put dye in the renal pelvis. Second visualize all the calyceal structures and I was able to inspect every one and there were no stones. No stones in the renal pelvis either and there were no stones in the ureter. I suspect the patient must have passed the stone. With that done, the procedure was terminated. The guidewire was removed and the patient was moved to recovery room in good condition. AUDREY / HEATH /[id number]
[2018-01-30] MEDS ORDERED: Insulin Aspart 100 Units/ML 3 ML Pen SUBCUT SCH (17:00)
--- NOTE | 2018-01-30 17:03 | CR ---
EXAMINATION: Right ureteroscopy HISTORY: Stone removal COMPARISON: 01/26/2018 TECHNIQUE: 5 fluoroscopic images provided FINDINGS/IMPRESSION: There is flexion of the right ureter with subsequent stone removal. Mild hydrone phrosis noted within the right renal collecting system.
[2018-01-30] MEDS ORDERED: Montelukast 10 MG Tab PO SCH (21:00)
[2018-01-31] MEDS ORDERED: Cetirizine 10 MG Tab PO SCH (09:00)
[2018-01-31] MEDS ORDERED: Insulin Glargine,Human Rec. Analog 100 Units/ML 3 ML Pen SUBCUT SCH (09:00)
== END 2018-01-30 21:25 | disposition home or self-care (01) ==
LOC: MW.MS 17:55
PROVIDERS: ADMIT Urology; ATTEND Urology
DX: N20.1 Calculus of ureter (principal); K21.9 Gastro-esophageal reflux disease without esophagitis; F41.9 Anxiety disorder, unspecified; F32.9 Major depressive disorder, single episode, unspecified; F17.210 Nicotine dependence, cigarettes, uncomplicated; J45.20 Mild intermittent asthma, uncomplicated; N39.0 Urinary tract infection, site not specified; E11.9 Type 2 diabetes mellitus without complications; E66.01 Morbid (severe) obesity due to excess calories; Z68.41 Body mass index [BMI] 40.0-44.9, adult; Z88.0 Allergy status to penicillin; Z79.4 Long term (current) use of insulin; Z79.899 Other long term (current) drug therapy
CPT/HCPCS: 36415; 52351; 76000; 80048; 82962; 85025; 94640; 96361; 96365; 96366; 96367; 96375; A9270; C1769; G0378; J0744; J1815; J2250; J3010; J3260; J3490; J7030; J7120; Q9966; J2704